=== PATIENT | male | born 1955 | race Caucasian/White ===

== ENCOUNTER 2017-08-21 09:01 | Inpatient (IN) | payer OTHER ==
[~2017-08-21] VITALS: Ht 190.5 cm; Wt 103.1 kg
[2017-08-21] MEDS ORDERED: GLIP5TAB10 PO (09:51)
[2017-08-21] MEDS ORDERED: ENAL5TAB PO (09:51)
[2017-08-21] MEDS ORDERED: WARF5TAB PO (09:51)
[2017-08-21] MEDS ORDERED: METF500T4 PO (09:51)
[2017-08-21 09:57] LABS: BASOPHILS # (AUTO) 0.06 x10^3/uL (0-0.1); BASOPHILS % (AUTO) 1 % (0-1); EOSINOPHILS # (AUTO) 0.03 x10^3/uL (0-0.4); EOSINOPHILS % (AUTO) 0 % (1-7); LYMPHOCYTES # (AUTO) 1.03 x10^3/uL (1-3.4); LYMPHOCYTES % (AUTO) 10 % (22-44); MD NO; MEAN CORPUSCULAR HEMOGLOBIN 36.6 pg (27.5-34.5); MEAN CORPUSCULAR HGB CONC 34.4 g/dL (33.2-36.2); MEAN CORPUSCULAR VOLUME 106.4 fL (81-97); MEAN PLATELET VOLUME 9.2 fL (7.4-10.4); MONOCYTES # (AUTO) 0.73 x10^3/uL (0.2-0.8); MONOCYTES % (AUTO) 7 % (2-9); NEUTROPHILS % (AUTO) 81 % (42-75); PLATELET COUNT 158 x10^3/uL (130-400); RED CELL DISTRIBUTION WIDTH 15.6 % (9.4-14.8)
[2017-08-21] MEDS ORDERED: SODIUM CHLORIDE FLUSH 10ML SYR IVF ONE (10:00)
[2017-08-21 10:08] LABS: ALBUMIN 3.4 g/dL (3.4-5.0); ANION GAP 11 mmol/L (5-15); CALCIUM 8.4 mg/dL (8.5-10.1); CHLORIDE 103 mmol/L (98-107); CREATININE 1.21 mg/dL (0.7-1.3)
[2017-08-21 10:17] LABS: TROPONIN I 0.354 ng/mL (0.000-0.045)
[2017-08-21] MEDS ORDERED: OMNIPAQUE 350 MG/ML, 100ML BOTTLE ONE (10:54)
[2017-08-21 11:01] LABS: INTERNATIONAL NORMALIZED RATIO 1.62 (0.93-1.1); PROTHROMBIN TIME 16.7 Seconds (9.6-11.5)
[2017-08-21] MEDS ORDERED: HEPARIN 5,000 UNITS/ML, 1ML IV PRN (11:30)
[2017-08-21] MEDS ORDERED: SODIUM CHLORIDE FLUSH 10ML SYR IVF PRN (11:30)
[2017-08-21] MEDS ORDERED: HEPARIN 25,000 UNITS/500ML PMX 500 ML IV PRN (11:30)
[2017-08-21] MEDS ORDERED: HEPARIN 5,000 UNITS/ML, 1ML IV ONE ×2 (11:30→13:00)
[2017-08-21] MEDS ORDERED: HEPARIN 5,000 UNITS/ML, 1ML ONE (11:38)
[2017-08-21] MEDS ORDERED: HEPARIN 25,000 UNITS/500ML PMX 500 ML ONE (11:38)
[2017-08-21] MEDS: ENALAPRIL 5MG TABLET PO SCH (12:30)
[2017-08-21] MEDS ORDERED: ACETAMINOPHEN 325 MG TABLET PO PRN (12:30)
[2017-08-21] MEDS ORDERED: TEMAZEPAM 15 MG CAPSULE PO PRN (12:30)
[2017-08-21] MEDS ORDERED: morphine SULFATE 10 MG/ML, 1ML IVPush PRN (12:30)
[2017-08-21] MEDS ORDERED: ONDANSETRON 2MG/ML, 2ML IVPush PRN (12:30)
[2017-08-21] MEDS ORDERED: hydrALAzine 20 MG/ML, 1ML IVPush PRN (12:30)
[2017-08-21] MEDS ORDERED: HYDROcodone/APAP 5/325 TABLET PO PRN (12:30)
[2017-08-21 12:32] VITALS: BP 144/77
[2017-08-21] MEDS: INSULIN LISPRO 100 UNITS/ML, PEN SQ-INSULIN SCH ×3 (13:00→20:41)
[2017-08-21 14:13] LABS: HEMOGLOBIN A1C 7.3 % (4.2-6.3)
[2017-08-21 14:17] LABS: THYROID STIMULATING HORMONE 1.35 mIU/L (0.358-3.740)
[2017-08-21] MEDS: WARFARIN 7.5 MG TABLET PO-COUM SCH (18:31)
[2017-08-21 19:51] VITALS: BP 126/88
[2017-08-21] MEDS ORDERED: metFORMIN 500 MG TABLET PO SCH (21:00)
[2017-08-22 00:20] LABS: TROPONIN I 0.194 ng/mL (0.000-0.045)
[2017-08-22 03:07] VITALS: BP 123/76
[2017-08-22 05:00] LABS: INTERNATIONAL NORMALIZED RATIO 1.94 (0.93-1.1); PROTHROMBIN TIME 19.9 Seconds (9.6-11.5)
[2017-08-22 06:40] LABS: BASOPHILS # (AUTO) 0.02 x10^3/uL (0-0.1); BASOPHILS % (AUTO) 0 % (0-1); EOSINOPHILS # (AUTO) 0.07 x10^3/uL (0-0.4); EOSINOPHILS % (AUTO) 1 % (1-7); LYMPHOCYTES # (AUTO) 1.51 x10^3/uL (1-3.4); LYMPHOCYTES % (AUTO) 22 % (22-44); MD NO; MEAN CORPUSCULAR HEMOGLOBIN 36.8 pg (27.5-34.5); MEAN CORPUSCULAR HGB CONC 34.3 g/dL (33.2-36.2); MEAN CORPUSCULAR VOLUME 107.3 fL (81-97); MEAN PLATELET VOLUME 9.5 fL (7.4-10.4); MONOCYTES # (AUTO) 0.59 x10^3/uL (0.2-0.8); MONOCYTES % (AUTO) 9 % (2-9); NEUTROPHILS # (AUTO) 4.76 x10^3/uL (1.8-6.8); NEUTROPHILS % (AUTO) 69 % (42-75); PLATELET COUNT 128 x10^3/uL (130-400); RED BLOOD COUNT 3.82 x10^6/uL (4.38-5.82); RED CELL DISTRIBUTION WIDTH 15.3 % (9.4-14.8)
[2017-08-22 06:52] LABS: ANION GAP 9 mmol/L (5-15); CALCIUM 8.5 mg/dL (8.5-10.1); CHLORIDE 102 mmol/L (98-107); CREATININE 1.15 mg/dL (0.7-1.3)
[2017-08-22 06:55] LABS: ALKALINE PHOSPHATASE 101 U/L (45-117); BILIRUBIN,TOTAL 1.9 mg/dL (0.2-1.0); TROPONIN I 0.143 ng/mL (0.000-0.045)
[2017-08-22 07:20] LABS: ALANINE AMINOTRANSFERASE 19 U/L (12-78); FOLATE LEVEL 5.9 ng/mL (3.1-17.5); TOTAL PROTEIN 6.4 g/dL (6.4-8.2)
[2017-08-22] MEDS: HEPARIN 25,000 UNITS/500ML PMX 500 ML IV PRN ×2 (07:31→22:38)
[2017-08-22] MEDS: HEPARIN 5,000 UNITS/ML, 1ML IV PRN ×2 (07:33→20:54)
[2017-08-22] MEDS: ENALAPRIL 5MG TABLET PO SCH (08:41)
[2017-08-22] MEDS: INSULIN LISPRO 100 UNITS/ML, PEN SQ-INSULIN SCH ×4 (08:42→20:54)
[2017-08-22 09:00] VITALS: BP 127/68
[2017-08-22] MEDS ORDERED: OMNIPAQUE 350 MG/ML, 100ML BOTTLE ONE (10:24)
[2017-08-22 14:24] VITALS: BP 126/72
[2017-08-22] MEDS: GLIMEPIRIDE 4 MG TABLET PO SCH (17:45)
[2017-08-22] MEDS: WARFARIN 7.5 MG TABLET PO-COUM SCH (17:45)
[2017-08-22] MEDS ORDERED: MAGNESIUM SULFATE PMX 2GM/50ML 50 ML IV ONE (18:00)
[2017-08-22 19:35] LABS: CLOSTRIDIUM DIFFICILE ANTIGEN NEGATIVE; CLOSTRIDIUM DIFFICILE TOXIN NEGATIVE (Negative)
[2017-08-22 19:41] VITALS: BP 137/86
[2017-08-23 03:15] VITALS: BP 111/78
[2017-08-23 03:39] LABS: INTERNATIONAL NORMALIZED RATIO 2.32 (0.93-1.1); PROTHROMBIN TIME 23.7 Seconds (9.6-11.5)
[2017-08-23 08:04] VITALS: BP 124/83
[2017-08-23] MEDS: INSULIN LISPRO 100 UNITS/ML, PEN SQ-INSULIN SCH ×4 (08:04→21:39)
[2017-08-23] MEDS: ENALAPRIL 5MG TABLET PO SCH (08:04)
[2017-08-23] MEDS: GLIMEPIRIDE 4 MG TABLET PO SCH (08:05)
[2017-08-23 08:20] LABS: ANION GAP 6 mmol/L (5-15); CALCIUM 8.2 mg/dL (8.5-10.1); CHLORIDE 104 mmol/L (98-107); CREATININE 0.98 mg/dL (0.7-1.3)
[2017-08-23] MEDS ORDERED: HEPARIN 25,000 UNITS/500ML PMX 500 ML ONE (13:12)
[2017-08-23 13:20] VITALS: BP 109/69
[2017-08-23] MEDS: WARFARIN 7.5 MG TABLET PO-COUM SCH (17:25)
[2017-08-23 20:45] VITALS: BP 123/81
[2017-08-24 05:07] VITALS: BP 137/76
[2017-08-24 05:39] LABS: INTERNATIONAL NORMALIZED RATIO 2.62 (0.93-1.1); PROTHROMBIN TIME 26.7 Seconds (9.6-11.5)
[2017-08-24 05:44] LABS: ANION GAP 5 mmol/L (5-15); CALCIUM 8.8 mg/dL (8.5-10.1); CHLORIDE 104 mmol/L (98-107); CREATININE 0.95 mg/dL (0.7-1.3)
[2017-08-24 07:31] VITALS: BP 108/63
[2017-08-24] MEDS: GLIMEPIRIDE 4 MG TABLET PO SCH (07:33)
[2017-08-24] MEDS: INSULIN LISPRO 100 UNITS/ML, PEN SQ-INSULIN SCH ×4 (07:52→21:03)
[2017-08-24 10:25] VITALS: BP 129/80
[2017-08-24] MEDS: ENALAPRIL 5MG TABLET PO SCH (10:25)
[2017-08-24 14:47] VITALS: BP 122/74
[2017-08-24] MEDS: WARFARIN 7.5 MG TABLET PO-COUM SCH (17:40)
[2017-08-24 18:58] VITALS: BP 128/73
[2017-08-25 04:44] VITALS: BP 126/83
[2017-08-25 05:02] LABS: INTERNATIONAL NORMALIZED RATIO 2.88 (0.93-1.1); PROTHROMBIN TIME 29.3 Seconds (9.6-11.5)
[2017-08-25 07:44] VITALS: BP 110/84
[2017-08-25] MEDS: INSULIN LISPRO 100 UNITS/ML, PEN SQ-INSULIN SCH ×2 (08:23→12:06)
[2017-08-25] MEDS: GLIMEPIRIDE 4 MG TABLET PO SCH (08:27)
[2017-08-25] MEDS: ENALAPRIL 5MG TABLET PO SCH (08:27)
[2017-08-25] MEDS ORDERED: GLIM4TAB PO (11:10)
[2017-08-25] MEDS ORDERED: WARF5TAB PO (11:10)
[2017-08-25] MEDS ORDERED: WARF2TAB7 PO (11:10)
[2017-08-25 12:34] VITALS: BP 116/64
== END 2017-08-25 13:45 | disposition home health service (06) | DRG 175 ==
LOC: ED 10:59 → EDIP 11:23 → SUATTDRO 11:34 → 5SO 12:28 → DCLOUNGE 08-25 13:30
PROVIDERS: ADMIT Internal Medicine; ATTEND Internal Medicine
DX: I26.09 Other pulmonary embolism with acute cor pulmonale (principal); D68.51 Activated protein C resistance; D68.52 Prothrombin gene mutation; E83.42 Hypomagnesemia; D69.6 Thrombocytopenia, unspecified; I82.411 Acute embolism and thrombosis of right femoral vein; I82.441 Acute embolism and thrombosis of right tibial vein; I82.431 Acute embolism and thrombosis of right popliteal vein; E11.9 Type 2 diabetes mellitus without complications; Z79.01 Long term (current) use of anticoagulants; Z80.1 Family history of malignant neoplasm of trachea, bronchus and lung; Z86.711 Personal history of pulmonary embolism; Z86.718 Personal history of other venous thrombosis and embolism; Z91.19 Patient's noncompliance with other medical treatment and regimen; I51.9 Heart disease, unspecified; E53.8 Deficiency of other specified B group vitamins; R19.7 Diarrhea, unspecified
CPT/HCPCS: 36415; 71275; 74177; 80048; 80053; 81240; 81241; 82040; 82607; 82746; 82962; 83036; 83735; 84100; 84439; 84443; 84484; 85025; 85301; 85303; 85306; 85520; 85598; 85610; 85613; 85670; 85730; 85732; 86146; 86147; 87324; 93005; 93306; 96365; J1644; Q9967; J1815; J3475

== ENCOUNTER → 2017-08-28 | Outpatient (CLI) | payer OTHER ==
[~2017-08-28] MED LIST: ENAL5TAB PO; GLIM4TAB PO; GLIP5TAB10 PO; METF500T4 PO; WARF2TAB7 PO; WARF5TAB PO
[2017-08-28 09:11] LABS: INTERNATIONAL NORMALIZED RATIO 3.03 (0.93-1.1); PROTHROMBIN TIME 30.8 Seconds (9.6-11.5)
== END | disposition home or self-care (01) ==
LOC: LAB 08:46
PROVIDERS: ATTEND Internal Medicine
DX: I26.99 Other pulmonary embolism without acute cor pulmonale (principal); I82.4Y9 Acute embolism and thrombosis of unspecified deep veins of unspecified proximal lower extremity
CPT/HCPCS: 36415; 85610

== ENCOUNTER → 2017-10-25 | Outpatient (CLI) | payer OTHER ==
[~2017-10-25] MED LIST changes: -WARF2TAB7 PO; +WARF2TAB99 PO
[2017-10-25 14:08] LABS: INTERNATIONAL NORMALIZED RATIO 6.83 (0.93-1.1); PROTHROMBIN TIME 68.4 Seconds (9.6-11.5)
== END ==
LOC: LAB 13:20
PROVIDERS: ATTEND Internal Medicine Cardiovascular Disease
DX: I26.99 Other pulmonary embolism without acute cor pulmonale (principal)
CPT/HCPCS: 36415; 85610

== ENCOUNTER → 2017-12-18 | Outpatient (CLI) | payer OTHER ==
[~2017-12-18] MED LIST changes: -METF500T4 PO; +METF500T5 PO
[2017-12-18 12:09] LABS: INTERNATIONAL NORMALIZED RATIO 2.36 (0.93-1.1); PROTHROMBIN TIME 24.1 Seconds (9.6-11.5)
== END | disposition home or self-care (01) ==
LOC: LAB 11:47
PROVIDERS: ATTEND Internal Medicine Cardiovascular Disease
DX: I26.99 Other pulmonary embolism without acute cor pulmonale (principal)
CPT/HCPCS: 36415; 85610

== ENCOUNTER → 2018-01-07 | Outpatient (CLI) | payer OTHER ==
[~2018-01-07] MED LIST changes: +OMNIPAQUE 350 MG/ML, 100ML BOTTLE ONE
== END | disposition home or self-care (01) ==
LOC: CFH 08:20
PROVIDERS: ATTEND Internal Medicine Hematology & Oncology
DX: R91.1 Solitary pulmonary nodule (principal); Z86.718 Personal history of other venous thrombosis and embolism; E11.9 Type 2 diabetes mellitus without complications
CPT/HCPCS: 71275; 82565; Q9967

== ENCOUNTER → 2018-02-15 | Outpatient (CLI) | payer OTHER ==
[~2018-02-15] MED LIST changes: -OMNIPAQUE 350 MG/ML, 100ML BOTTLE ONE
[2018-02-15 11:08] LABS: BASOPHILS # (AUTO) 0.02 x10^3/uL (0-0.1); BASOPHILS % (AUTO) 0 % (0-1); EOSINOPHILS # (AUTO) 0.02 x10^3/uL (0-0.4); EOSINOPHILS % (AUTO) 0 % (1-7); LYMPHOCYTES # (AUTO) 0.84 x10^3/uL (1-3.4); LYMPHOCYTES % (AUTO) 13 % (22-44); MD NO; MEAN CORPUSCULAR HGB CONC 34.2 g/dL (33.2-36.2); MEAN CORPUSCULAR VOLUME 102.5 fL (81-97); MEAN PLATELET VOLUME 8.4 fL (7.4-10.4); MONOCYTES # (AUTO) 0.43 x10^3/uL (0.2-0.8); MONOCYTES % (AUTO) 7 % (2-9); NEUTROPHILS # (AUTO) 4.98 x10^3/uL (1.8-6.8); NEUTROPHILS % (AUTO) 79 % (42-75); PLATELET COUNT 172 x10^3/uL (130-400); RED BLOOD COUNT 3.86 x10^6/uL (4.38-5.82); RED CELL DISTRIBUTION WIDTH 14.7 % (9.4-14.8)
[2018-02-15 11:16] LABS: ANION GAP 5 mmol/L (5-15); CALCIUM 8.9 mg/dL (8.5-10.1); CHLORIDE 106 mmol/L (98-107)
[2018-02-15 11:27] LABS: INTERNATIONAL NORMALIZED RATIO 4.54 (0.93-1.1)
[2018-02-15 11:33] LABS: PROTHROMBIN TIME 45.8 Seconds (9.6-11.5)
[2018-02-15 11:43] LABS: CREATININE 1.13 mg/dL (0.7-1.3); FOLATE LEVEL 9.4 ng/mL (3.1-17.5)
== END | disposition home or self-care (01) ==
LOC: LAB 10:50
PROVIDERS: ATTEND Internal Medicine Cardiovascular Disease
DX: I26.99 Other pulmonary embolism without acute cor pulmonale (principal); I27.82 Chronic pulmonary embolism; Z86.718 Personal history of other venous thrombosis and embolism
CPT/HCPCS: 36415; 80048; 82607; 82746; 85025; 85610

== ENCOUNTER → 2018-05-10 | Outpatient (CLI) | payer OTHER ==
[~2018-05-10] MED LIST changes: +METF500T17 PO; -METF500T5 PO
== END | disposition home or self-care (01) ==
LOC: CFH 07:55
PROVIDERS: ATTEND Internal Medicine Cardiovascular Disease
DX: I27.82 Chronic pulmonary embolism (principal); Q67.6 Pectus excavatum; E11.9 Type 2 diabetes mellitus without complications; I10 Essential (primary) hypertension
CPT/HCPCS: 93306

== ENCOUNTER → 2018-08-09 | Outpatient (CLI) | payer OTHER ==
[~2018-08-09] MED LIST changes: +OMNIPAQUE 350 MG/ML, 100ML BOTTLE ONE
== END | disposition home or self-care (01) ==
LOC: CFH 10:17
PROVIDERS: ATTEND Internal Medicine Hematology & Oncology
DX: R91.1 Solitary pulmonary nodule (principal); Z90.2 Acquired absence of lung [part of]; Z86.718 Personal history of other venous thrombosis and embolism
CPT/HCPCS: 71260; Q9967

== ENCOUNTER → 2018-11-14 | Outpatient (CLI) | payer OTHER ==
[~2018-11-14] MED LIST changes: -OMNIPAQUE 350 MG/ML, 100ML BOTTLE ONE
== END | disposition home or self-care (01) ==
LOC: WOUND 09:05
PROVIDERS: ATTEND Internal Medicine
DX: E11.622 Type 2 diabetes mellitus with other skin ulcer (principal); I87.312 Chronic venous hypertension (idiopathic) with ulcer of left lower extremity; L97.222 Non-pressure chronic ulcer of left calf with fat layer exposed; D68.51 Activated protein C resistance; I82.592 Chronic embolism and thrombosis of other specified deep vein of left lower extremity; Z79.01 Long term (current) use of anticoagulants; Z90.2 Acquired absence of lung [part of]
CPT/HCPCS: 97597; 99215

== ENCOUNTER → 2018-11-28 | Outpatient (CLI) | payer OTHER | END | disposition home or self-care (01) | LOC: WOUND 08:42 | PROVIDERS: ATTEND Internal Medicine | DX: E11.621 Type 2 diabetes mellitus with foot ulcer (principal); L97.521 Non-pressure chronic ulcer of other part of left foot limited to breakdown of skin; E11.622 Type 2 diabetes mellitus with other skin ulcer; I87.312 Chronic venous hypertension (idiopathic) with ulcer of left lower extremity; L97.222 Non-pressure chronic ulcer of left calf with fat layer exposed; L97.321 Non-pressure chronic ulcer of left ankle limited to breakdown of skin; D68.51 Activated protein C resistance; I82.592 Chronic embolism and thrombosis of other specified deep vein of left lower extremity; Z90.2 Acquired absence of lung [part of]; Z79.01 Long term (current) use of anticoagulants | CPT/HCPCS: 97597 ==

== ENCOUNTER → 2018-12-28 | Outpatient (CLI) | payer OTHER | END | disposition home or self-care (01) | LOC: WOUND 08:00 | PROVIDERS: ATTEND Internal Medicine | DX: E11.621 Type 2 diabetes mellitus with foot ulcer (principal); L97.521 Non-pressure chronic ulcer of other part of left foot limited to breakdown of skin; E11.622 Type 2 diabetes mellitus with other skin ulcer; I87.312 Chronic venous hypertension (idiopathic) with ulcer of left lower extremity; L97.222 Non-pressure chronic ulcer of left calf with fat layer exposed; L97.321 Non-pressure chronic ulcer of left ankle limited to breakdown of skin; I82.592 Chronic embolism and thrombosis of other specified deep vein of left lower extremity; Z90.2 Acquired absence of lung [part of]; Z79.01 Long term (current) use of anticoagulants | CPT/HCPCS: 97597 ==

== ENCOUNTER 2019-01-11 08:00 | Outpatient (CLI) | payer OTHER | END 2019-01-11 23:59 | disposition home or self-care (01) | LOC: WOUND 08:00 | PROVIDERS: ATTEND Internal Medicine | DX: E11.621 Type 2 diabetes mellitus with foot ulcer (principal); I87.312 Chronic venous hypertension (idiopathic) with ulcer of left lower extremity; L97.521 Non-pressure chronic ulcer of other part of left foot limited to breakdown of skin; E11.622 Type 2 diabetes mellitus with other skin ulcer; L97.222 Non-pressure chronic ulcer of left calf with fat layer exposed; L97.321 Non-pressure chronic ulcer of left ankle limited to breakdown of skin; I82.592 Chronic embolism and thrombosis of other specified deep vein of left lower extremity; Z90.2 Acquired absence of lung [part of]; Z79.01 Long term (current) use of anticoagulants | CPT/HCPCS: 97597 ==

== ENCOUNTER 2019-01-25 08:06 | Outpatient (CLI) | payer OTHER | END 2019-01-25 23:59 | disposition home or self-care (01) | LOC: WOUND 08:06 | PROVIDERS: ATTEND Internal Medicine | DX: E11.621 Type 2 diabetes mellitus with foot ulcer (principal); I87.312 Chronic venous hypertension (idiopathic) with ulcer of left lower extremity; L97.521 Non-pressure chronic ulcer of other part of left foot limited to breakdown of skin; E11.622 Type 2 diabetes mellitus with other skin ulcer; L97.222 Non-pressure chronic ulcer of left calf with fat layer exposed; L97.321 Non-pressure chronic ulcer of left ankle limited to breakdown of skin; I82.592 Chronic embolism and thrombosis of other specified deep vein of left lower extremity; Z90.2 Acquired absence of lung [part of]; Z79.01 Long term (current) use of anticoagulants | CPT/HCPCS: 29581; 97597 ==

== ENCOUNTER 2019-05-01 08:32 | Outpatient (CLI) | payer OTHER | END 2019-05-01 23:59 | disposition home or self-care (01) | LOC: WOUND 08:32 | PROVIDERS: ATTEND Internal Medicine | DX: E11.621 Type 2 diabetes mellitus with foot ulcer (principal); I87.312 Chronic venous hypertension (idiopathic) with ulcer of left lower extremity; L97.521 Non-pressure chronic ulcer of other part of left foot limited to breakdown of skin; E11.622 Type 2 diabetes mellitus with other skin ulcer; L97.222 Non-pressure chronic ulcer of left calf with fat layer exposed; D68.51 Activated protein C resistance; I82.592 Chronic embolism and thrombosis of other specified deep vein of left lower extremity; Z90.2 Acquired absence of lung [part of]; Z79.01 Long term (current) use of anticoagulants | CPT/HCPCS: 97597 ==

== ENCOUNTER → 2019-05-22 | Outpatient (CLI) | payer OTHER | END | disposition home or self-care (01) | LOC: WOUND 08:39 | PROVIDERS: ATTEND Internal Medicine | DX: E11.621 Type 2 diabetes mellitus with foot ulcer (principal); I87.312 Chronic venous hypertension (idiopathic) with ulcer of left lower extremity; L97.521 Non-pressure chronic ulcer of other part of left foot limited to breakdown of skin; E11.622 Type 2 diabetes mellitus with other skin ulcer; L97.222 Non-pressure chronic ulcer of left calf with fat layer exposed; D68.51 Activated protein C resistance; I82.592 Chronic embolism and thrombosis of other specified deep vein of left lower extremity; Z90.2 Acquired absence of lung [part of]; Z79.01 Long term (current) use of anticoagulants | CPT/HCPCS: 97597 ==

== ENCOUNTER → 2019-05-29 | Outpatient (CLI) | payer OTHER | END | disposition home or self-care (01) | LOC: WOUND 08:52 | PROVIDERS: ATTEND Internal Medicine | DX: E11.621 Type 2 diabetes mellitus with foot ulcer (principal); I87.312 Chronic venous hypertension (idiopathic) with ulcer of left lower extremity; L97.521 Non-pressure chronic ulcer of other part of left foot limited to breakdown of skin; E11.622 Type 2 diabetes mellitus with other skin ulcer; L97.222 Non-pressure chronic ulcer of left calf with fat layer exposed; D68.51 Activated protein C resistance; I82.592 Chronic embolism and thrombosis of other specified deep vein of left lower extremity; Z90.2 Acquired absence of lung [part of]; Z79.01 Long term (current) use of anticoagulants | CPT/HCPCS: 97597 ==

== ENCOUNTER → 2019-06-12 | Outpatient (CLI) | payer OTHER | END | disposition home or self-care (01) | LOC: WOUND 08:30 | PROVIDERS: ATTEND Internal Medicine | DX: E11.621 Type 2 diabetes mellitus with foot ulcer (principal); I87.312 Chronic venous hypertension (idiopathic) with ulcer of left lower extremity; L97.521 Non-pressure chronic ulcer of other part of left foot limited to breakdown of skin; E11.622 Type 2 diabetes mellitus with other skin ulcer; L97.222 Non-pressure chronic ulcer of left calf with fat layer exposed; D68.51 Activated protein C resistance; I82.592 Chronic embolism and thrombosis of other specified deep vein of left lower extremity; Z90.2 Acquired absence of lung [part of]; Z79.01 Long term (current) use of anticoagulants | CPT/HCPCS: 99214 ==

== ENCOUNTER → 2019-07-03 | Outpatient (CLI) | payer OTHER | END | disposition home or self-care (01) | LOC: WOUND 08:32 | PROVIDERS: ATTEND Internal Medicine | DX: E11.621 Type 2 diabetes mellitus with foot ulcer (principal); I87.312 Chronic venous hypertension (idiopathic) with ulcer of left lower extremity; L97.521 Non-pressure chronic ulcer of other part of left foot limited to breakdown of skin; E11.622 Type 2 diabetes mellitus with other skin ulcer; L97.222 Non-pressure chronic ulcer of left calf with fat layer exposed; D68.51 Activated protein C resistance; I82.592 Chronic embolism and thrombosis of other specified deep vein of left lower extremity; Z90.2 Acquired absence of lung [part of]; Z79.01 Long term (current) use of anticoagulants | CPT/HCPCS: 97597 ==

== ENCOUNTER 2019-07-17 08:30 | Outpatient (CLI) | payer OTHER | END 2019-07-17 23:59 | disposition home or self-care (01) | LOC: WOUND 08:30 | PROVIDERS: ATTEND Internal Medicine | DX: E11.621 Type 2 diabetes mellitus with foot ulcer (principal); I87.312 Chronic venous hypertension (idiopathic) with ulcer of left lower extremity; L97.521 Non-pressure chronic ulcer of other part of left foot limited to breakdown of skin; E11.622 Type 2 diabetes mellitus with other skin ulcer; L97.222 Non-pressure chronic ulcer of left calf with fat layer exposed; D68.51 Activated protein C resistance; I82.592 Chronic embolism and thrombosis of other specified deep vein of left lower extremity; Z90.2 Acquired absence of lung [part of]; Z79.01 Long term (current) use of anticoagulants | CPT/HCPCS: 97597 ==

== ENCOUNTER 2019-08-09 08:31 | Outpatient (CLI) | payer OTHER | END 2019-08-09 23:59 | disposition home or self-care (01) | LOC: WOUND 08:31 | PROVIDERS: ATTEND Internal Medicine | DX: E11.621 Type 2 diabetes mellitus with foot ulcer (principal); I87.312 Chronic venous hypertension (idiopathic) with ulcer of left lower extremity; L97.521 Non-pressure chronic ulcer of other part of left foot limited to breakdown of skin; E11.622 Type 2 diabetes mellitus with other skin ulcer; L97.222 Non-pressure chronic ulcer of left calf with fat layer exposed; D68.51 Activated protein C resistance; I82.592 Chronic embolism and thrombosis of other specified deep vein of left lower extremity; Z90.2 Acquired absence of lung [part of]; Z79.01 Long term (current) use of anticoagulants | CPT/HCPCS: 97597 ==

== ENCOUNTER → 2019-08-23 | Outpatient (CLI) | payer OTHER | END | disposition home or self-care (01) | LOC: WOUND 08:28 | PROVIDERS: ATTEND Internal Medicine | DX: E11.621 Type 2 diabetes mellitus with foot ulcer (principal); I87.312 Chronic venous hypertension (idiopathic) with ulcer of left lower extremity; L97.528 Non-pressure chronic ulcer of other part of left foot with other specified severity; E11.622 Type 2 diabetes mellitus with other skin ulcer; L97.222 Non-pressure chronic ulcer of left calf with fat layer exposed; I82.592 Chronic embolism and thrombosis of other specified deep vein of left lower extremity; I95.1 Orthostatic hypotension; D68.51 Activated protein C resistance; Z90.2 Acquired absence of lung [part of]; Z79.01 Long term (current) use of anticoagulants | CPT/HCPCS: 99213 ==

== ENCOUNTER → 2020-01-29 | Outpatient (CLI) | payer OTHER ==
[~2020-01-29] MED LIST changes: -WARF5TAB PO; +WARF5TAB2 PO
[2020-01-29 11:22] LABS: BASOPHILS # (AUTO) 0.02 x10^3/uL (0-0.1); BASOPHILS % (AUTO) 0 % (0-1); EOSINOPHILS # (AUTO) 0.37 x10^3/uL (0-0.4); EOSINOPHILS % (AUTO) 4 % (1-7); LYMPHOCYTES # (AUTO) 1.04 x10^3/uL (1-3.4); LYMPHOCYTES % (AUTO) 12 % (22-44); MD NO; MEAN CORPUSCULAR HEMOGLOBIN 36.4 pg (27.5-34.5); MEAN CORPUSCULAR HGB CONC 34.1 g/dL (33.2-36.2); MEAN CORPUSCULAR VOLUME 106.6 fL (81-97); MEAN PLATELET VOLUME 8.5 fL (7.4-10.4); MONOCYTES # (AUTO) 0.45 x10^3/uL (0.2-0.8); MONOCYTES % (AUTO) 5 % (2-9); NEUTROPHILS # (AUTO) 6.56 x10^3/uL (1.8-6.8); NEUTROPHILS % (AUTO) 78 % (42-75); PLATELET COUNT 187 x10^3/uL (130-400); RED BLOOD COUNT 3.91 x10^6/uL (4.38-5.82); RED CELL DISTRIBUTION WIDTH 14.8 % (9.4-14.8)
[2020-01-29 11:33] LABS: ALANINE AMINOTRANSFERASE 36 U/L (12-78); ALBUMIN 3.7 g/dL (3.4-5.0); ANION GAP 6 mmol/L (5-15); CALCIUM 9.2 mg/dL (8.5-10.1); CHLORIDE 107 mmol/L (98-107)
[2020-01-29 11:36] LABS: ALKALINE PHOSPHATASE 98 U/L (45-117); BILIRUBIN,TOTAL 1.4 mg/dL (0.2-1.0); TOTAL PROTEIN 7.3 g/dL (6.4-8.2)
[2020-01-29 11:54] LABS: CHOL/HDL RATIO 1.3; LDL/HDL RATIO 0.2 (0.5-3.0)
== END | disposition home or self-care (01) ==
LOC: LAB 10:51
PROVIDERS: ATTEND Nurse Practitioner
DX: E11.65 Type 2 diabetes mellitus with hyperglycemia (principal); E55.9 Vitamin D deficiency, unspecified; R94.5 Abnormal results of liver function studies; K57.30 Diverticulosis of large intestine without perforation or abscess without bleeding; E80.4 Gilbert syndrome; K70.9 Alcoholic liver disease, unspecified; Z79.01 Long term (current) use of anticoagulants
CPT/HCPCS: 36415; 80053; 80061; 82043; 82107; 82306; 82570; 85025

== ENCOUNTER → 2020-07-13 | Outpatient (CLI) | payer OTHER ==
[~2020-07-13] MED LIST changes: -ENAL5TAB PO; +ENAL5TAB10 PO
[2020-07-13 12:57] LABS: PROTHROMBIN TIME > 84.0 Seconds (9.6-11.5)
[2020-07-13 12:58] LABS: INTERNATIONAL NORMALIZED RATIO > 12.00 (0.93-1.1)
== END | disposition home or self-care (01) ==
LOC: LAB 11:16
PROVIDERS: ATTEND Internal Medicine Gastroenterology
DX: Z79.01 Long term (current) use of anticoagulants (principal)
CPT/HCPCS: 36415; 85610

== ENCOUNTER → 2020-12-06 | Outpatient (CLI) | payer OTHER | END | disposition home or self-care (01) | LOC: LAB 09:38 | PROVIDERS: ATTEND Nurse Practitioner | DX: E11.65 Type 2 diabetes mellitus with hyperglycemia (principal); R79.9 Abnormal finding of blood chemistry, unspecified | CPT/HCPCS: 36415; 82043; 82570; 84153; 84443; G0103 ==